=== PATIENT | female | born 1955 | race Caucasian/White ===

== ENCOUNTER 2023-02-15 09:25 | Outpatient (CLI) | payer BC, SELFPAY ==
--- NOTE | 2023-02-15 09:36 | MM_ITS ---
WS: [id number] Bilateral screening 3D tomosynthesis digital mammogram, 02/15/2023 Clinical Data: SCREENING Comparison: 10/03/2019, 05/16/2018, 07/02/2017, 05/03/2016, 04/27/2015, 04/13/2014, 11/25/2012, 01/20/2011, , 09/28/2008 , 08/14/2007. Findings: The breast parenchymal pattern shows fibroglandular tissue. No spiculated masses or clustered calcifi cations are seen. There are no secondary signs of carcinoma. MM/[place] [id number] Impression: 1. Negative bilateral mammogram unchanged. 2. Recommend annual screening mammograms. BIRADS: 1-Negative FOLLOW UP: 1 Year Follow-up The CAD auto design checker was used.
== END 2023-02-15 09:26 | disposition home or self-care (01) ==
PROVIDERS: Family Provider Internal Medicine; PCP Electrodiagnostic Medicine; Visit Provider Electrodiagnostic Medicine
DX: Z12.31 Encounter for screening mammogram for malignant neoplasm of breast (principal)
CPT/HCPCS: 77063; 77067

== ENCOUNTER 2023-05-17 14:16 | Outpatient (CLI) | payer BC, SELFPAY ==
--- NOTE | 2023-05-17 14:26 | XR_ITS ---
WS: [id number] SCREENING DEXA SCAN [employer] CLINICAL INFORMATION: POSTMENOPAUSAL COMPARISON: None. FINDINGS: The L1-L4 bone mineral density measures 1.038 g/cm2. This corresponds to a T score score of -1.2 and Z score of -0.3. Left femoral neck bone mineral density measures 1.010 g/cm2. This corresponds to a T score of 0.0 and Z score of 0.8. Right femoral neck bone mineral density measures 1.001 g/cm2. This corresponds to a T score -0.1of an d Z score of 0.7. Mean femoral neck bone mineral density measures 1.006 g/cm2. This corresponds to a T score of 0.0 and Z score of 0.7. IMPRESSION: Osteopenia lumbar spine. Normal bone mineralization femoral necks. Patient's FRAX calculated 10 year probability for major osteoporotic fracture is 14.4% and osteoporot ic hip fracture is 1.7%.
== END 2023-05-17 14:17 | disposition home or self-care (01) ==
PROVIDERS: PCP Electrodiagnostic Medicine; Visit Provider Electrodiagnostic Medicine
DX: Z13.820 Encounter for screening for osteoporosis (principal); Z78.0 Asymptomatic menopausal state; M85.88 Other specified disorders of bone density and structure, other site
CPT/HCPCS: 77080

== ENCOUNTER 2024-02-02 14:13 | Emergency (ER) | payer MEDICARE, SELFPAY ==
[2024-02-02 14:46] VITALS: BP 165/74; PULSE 73; RESP 17; TEMP 36.6; O2SAT 96; BMI 34.7
--- NOTE | 2024-02-02 15:13 | XRR_ITS ---
PROCEDURE INFORMATION: Exam: XR Right Shoulder Exam date and time: 02/02/2024 3:52 PM Age: 68 years old Clinical indication: Injury or trauma; Fall; Blunt trauma (contusions or hematomas); Shoulder; Right; Additional info: Fall/pain TECHNIQUE: Imaging protocol: Radiologic exam of the right shoulder. Views: 2 or more views. COMPARISON: No relevant prior studies available. FINDINGS: Bones/joints: Acute comminuted displaced proximal humeral fracture involving surgical neck and greater tuberosity. A large displaced greater tuberosity fragment is noted. The humeral head appears reduced within the glenoid fossa. The acromioclavicular articulation is grossly intact with moderate osteoarthritis. Soft tissues: Soft tissue edema of the right shoulder. No radiopaque foreign body. XR/XR shoulder RT min 2V* [id number] IMPRESSION: 1. Acute comminuted displaced proximal humeral fracture on the right.
--- NOTE | 2024-02-02 15:26 | W.ED.EXTPRO ---
HPI - Extremity Problem General: Chief complaint: Extremity Injury, Upper Stated complaint: fall, right shoulder pain Time Seen by Provider: 02/02/24 15:26 History of Present Illness: 68-year-old female presents emergency department with complaints of right upper arm pain. She states she tripped over an object in her yard and fell on outstretched arm. She states she had immediate 10 out of 10 pain and had a cracking/popping sensation to her right upper shoulder when she fell. She denies neck pain or loss of consciousness. She states she does feel slightly nauseated and attributes that to her right upper arm pain. She denies numbness or tingling to the extremity. She denies back pain or loss of consciousness. She states any type of movement makes the pain worse and holding completely still makes the pain better. Review of Systems General: Reports: 10 or more systems reviewed and unremarkable except in HPI and below Musc: Reports: extremity pain and extremity swelling Physical Exam Narrative: EXAM NARRATIVE: Constitutional: the patient appears well nourished and of normal development. Vital signs as documented. No acute distress at present. Alert and oriented-to person, place, time and situation. Head, eyes, ears, nose, mouth, throat: Normocephalic, atraumatic. Pupils-equal, round, reactive to light. No scleral icterus. Normal-appearing external ears. Normal appearing nasal turbinates, no drainage. No obvious oral lesions, posterior oropharynx without erythema or exudates. Neck: Supple, trachea is midline, no lymphadenopathy, no jugular venous distension, thyromegaly, or carotid bruits. Carotid upstrokes are brisk bilaterally. Lungs: clear to auscultation to all lung del angel. Symmetrical rise and fall of chest, no obvious signs of increased work of breathing at present. Cardiac: Regular rate and rhythm, positive S1, S2. No murmurs, rubs or gallops that I can appreciate Abdomen: Soft, non-tender to palpation, normal active bowel sounds to all quadrants. No palpable masses, no organomegaly and abdominal bruits. Extremities: 2+ pulses in the upper extremities that are equal bilaterally, 2+ pulses in the lower extremities that are equal bilaterally. Non-edematous. Sensation in all extremities, right upper extremity tenderness to palpation with obvious swelling consistent with fracture. Skin: Warm, dry, intact. Course Vital Signs: Vital signs: Vital Signs Temperature 98 F 04/27/24 14:46 Pulse Rate 73 02/02/24 14:46 Respiratory Rate 17 02/02/24 14:46 Blood Pressure 165/74 02/02/24 14:46 Pulse Oximetry 96 02/02/24 14:46 Oxygen Delivery Me thod Room Air 02/02/24 14:46 MDM - Extremity (Nontraumatic) Medical Decision Making Physical exam completed and documented I did provide the patient's muscle relaxer, intramuscular pain medication and p.o. pain medication as well as a plain film x-rays which demonstrated fracture I also provided a sling for the patient's upper extremity as well as contact information for the on-call orthopedic physician. Procedure note: Right shoulder sling I reviewed the radiographic examination and determined the need for stabilization via right upper extremity sling. A soft shoulder sling was utilized. The sling was ordered and placed by the nursing staff, under the direct supervision of myself (ER Physician. The patient's neurovascular status was evaluated and was intact before and after the application of the sling/splint. Capillary refill was less than 3 seconds before and after the application. The patient was provided a sling and the most appropriate anatomical and functional position at that time. Anticipatory guidance, return precautions and red flag precautions were provided to the patient and support person. The patient/support person was advised to contact the patient's primary care provider or Orthopedic provider to make a follow-up appointment for additional evaluation and treatment within the next 3-5 days. Medical Records I reviewed the patient's medical records. Lab Data Radiology Impressions Shoulder X-Ray 02/02/24 15:13 IMPRESSION: 1. Acute comminuted displaced proximal humeral fracture on the right. All radiology interpretation(s) finalized by discharge Discharge Plan Discharge Patient Disposition: Home Clinical Impression: Closed right humeral fracture, Arm pain, right, Accidental fall Condition: Stable Prescriptions: New hydrocodone-acetaminophen 10-325 mg tablet 1 tab PO Q6H PRN (Reason: pain) Qty: 21 0RF naproxen 500 mg tablet 500 mg PO Q12H PRN (Reason: pain) Qty: 20 0RF cyclobenzaprine 10 mg tablet 10 mg PO Q8H Qty: 21 0RF Discharge Orders: Discharge ED (Routine); Ordered 02/02/24 Ordered By: Don Carranza Referrals: Arvin Chen DO [Physician] - Jaspreet Sanchez DO [Primary Care Provider] - Discharge Diet: Usual diet Discharge Activity: Resume usual activity Patient Instructions: Opioid Safety, Pain Management Activity Restrictions/Additional Instructions: Activity Restrictions/Additional Instructions: Thank you for choosing [facility] for your healthcare needs today. Please realize that you were seen in the Emergency Department and that we are providing you with an emergency medical screening exam and this may not be a complete and all inclusive of all the testing and or medical work-up that you may need to determine your ailment or severity of your illness. It is very important that you follow-up as instructed with your Primary care provider or Specialist for additional evaluation and to discuss your medical treatment plan. You may return to the Emergency Department should you have concerns or if your condition changes or worsens in any way. Coding Level of Care Code ED [employer] Machine Operator for Sarika Gomez
[2024-02-02] MEDS: HYDROcodone-acetaminophen 5-325 mg Tablet 1 TAB PO (16:22)
[2024-02-02] MEDS: orphenadrine 30 mg/mL Inj 2 mL 60 MG IM (16:28)
[2024-02-02] MEDS: ketorolac 60 mg/2 mL INJ IM (16:29)
== END 2024-02-02 17:39 | disposition home or self-care (01) ==
PROVIDERS: Emergency Provider Internal Medicine; PCP Electrodiagnostic Medicine
DX: S42.291A Other displaced fracture of upper end of right humerus, initial encounter for closed fracture (principal); W18.09XA Striking against other object with subsequent fall, initial encounter; Y92.007 Garden or yard of unspecified non-institutional (private) residence as the place of occurrence of the external cause
CPT/HCPCS: 73030; 96372; 99284; J1885; J2360

== ENCOUNTER → 2024-02-07 15:05 | Outpatient (BNVA) | payer MEDICARE, SELFPAY | PROVIDERS: PCP Electrodiagnostic Medicine; Visit Provider Orthopaedic Surgery | DX: M79.601 Pain in right arm; S42.231A 3-part fracture of surgical neck of right humerus, initial encounter for closed fracture; W19.XXXA Unspecified fall, initial encounter | CPT/HCPCS: 73030; 73060; 99204 ==

== ENCOUNTER 2024-02-12 15:46 | Outpatient (CLI) | payer MEDICARE, SELFPAY ==
--- NOTE | 2024-02-12 16:15 | CT_ITS ---
WS: [id number] CT RIGHT SHOULDER, NONCONTRAST, 3D. HISTORY: M79.601 - Pain in right arm Technique: All CT scans at [facility] use at least one of these dose optimization techniques: automated exposure control; mA and/or kV adjustment per patient size (includes targeted exams where dose is matched to clinical indication); or iterative reconstruction. DLP: 434.43 mGy.cm COMPARISON: Radiograph 02/07/2024 Comminuted RIGHT proximal humeral fracture with medial displacement and impaction. Fracture is impact ed along the surgical neck fracture site and medially displaced by 12 mm. Avulsion of the greater tub erosity sits lateral to the humeral head. Very slight displacement of the humeral head from the gleno id is probably due to joint effusion related to the fracture. The glenoid itself appears intact. Ther e is no callus formation or healing. Mild AC joint arthritis. Clavicle and visualized ribs appear fracture free. CT/CT shoulder RT wo con* [id number] IMPRESSION: 1. Comminuted, impacted and medially displaced proximal RIGHT humeral fracture and. 2. Avulsion of the greater tuberosity is displaced laterally and superiorly. 3. No additional fractures.
== END 2024-02-12 15:47 | disposition home or self-care (01) ==
LOC: RAD 15:46
PROVIDERS: PCP Electrodiagnostic Medicine; Visit Provider Orthopaedic Surgery
DX: M79.601 Pain in right arm (principal); S42.201A Unspecified fracture of upper end of right humerus, initial encounter for closed fracture; X58.XXXA Exposure to other specified factors, initial encounter
CPT/HCPCS: 73200

== ENCOUNTER → 2024-02-19 15:27 | Outpatient (BNVA) | payer MEDICARE, SELFPAY | PROVIDERS: PCP Electrodiagnostic Medicine; Visit Provider Orthopaedic Surgery | DX: Z09 Encounter for follow-up examination after completed treatment for conditions other than malignant neoplasm; S42.291D Other displaced fracture of upper end of right humerus, subsequent encounter for fracture with routine healing; X58.XXXD Exposure to other specified factors, subsequent encounter; S42.90XD Fracture of unspecified shoulder girdle, part unspecified, subsequent encounter for fracture with routine healing | CPT/HCPCS: 80053; 81001; 85025; 87077; 87086; 87186; 99214 ==

== ENCOUNTER 2024-02-25 11:16 | Day surgery (SDC) | payer MEDICARE, SELFPAY ==
[2024-02-25] VITALS (14 sets, daily range): BP systolic 105–150; BP diastolic 46–66; PULSE 58–78; RESP 16–20; TEMP 36.2–36.4; O2SAT 90–98
[2024-02-25] MEDS: sodium chloride 0.9% 1,000 ML 30 ML IV (11:47)
--- NOTE | 2024-02-25 13:25 | W.PM.OPSUD ---
Surgery/Procedure H&P Update DATE OF PROCEDURE: February 25, 2024 DATE H&P PERFORMED: 02/19/24 H&P UPDATE INFORMATION: I have reviewed H&P completed within last 30 days, I have examined patient prior to procedure and No changes to prior documentation PREOP DIAGNOSIS: Right proximal humerus fracture PLANNED PROCEDURE: Operation Date: 02/25/24 12:55 Proposed Procedures p ORIF Proximal Humerus(Right) - Arvin Chen DO
[2024-02-25] MEDS: ceFAZolin 2,000 MG in sodium chloride 0.9% (plus) 50 ML 100 MG IV (13:57)
[2024-02-25] MEDS: lidocaine-epi 2% PF 1:200,000 20 mL SDV INJECTION (14:52)
--- NOTE | 2024-02-25 14:56 | ANES.PREANE2 ---
Pre-Anesthetic Assessment Height/Weight: Height 1.55 m Weight 83.461 kg Temp Pulse Resp BP Pulse Ox O2 Del Method 97.2 F L 74 18 150/64 98 Room Air 02/25/24 11:48 02/25/24 11:48 02/25/24 11:48 02/25/24 11:48 02/25/24 11:48 02/25/24 11:48 Preop Diagnosis: Right proximal humerus fracture Operation Date: 02/25/24 12:55 Proposed Procedures p ORIF Proximal Humerus(Right) - Arvin Chen DO Familial anesthetic complications: none Was Beta Glenn taken within 24 hours: N/A Was Clonidine taken within 24 hours: N/A Last intake: Intake Last Liquid Date 02/24/24 Last Liquid Time 23:55 Last Solid Date 02/24/24 Last Solid Time 21:00 Social No alcohol and No tobacco Exam alert, oriented x 3, clear to auscultation bilaterally and regular rate & rhythm Airway Submandibular: within normal limits Cervical ROM: within normal limits Mallampati: Class II Dentition: full GI Gastroesophageal Reflux Disease Metabolic Hyperlipidemia Anesthetic Plan ASA status: 2 Anesthesia: General and Regional (specify below) (right interscalene blk) Medications/Allergies Home Medications Medication Instructions Recorded Confirmed Last Taken Type omeprazole 40 mg capsule,delayed 40 mg PO DAILY 02/19/24 02/22/24 02/25/24 History release simvastatin 40 mg tablet 40 mg PO DAILY 02/19/24 02/22/24 02/23/24 History Allergies Allergy/AdvReac Type Severity Reaction Status Date / Time No Known Allergies Allergy Verified 02/22/24 12:24 Current Medications Generic Name Dose Route Start Last Admin Trade Name Freq PRN Reason Stop Dose Admin Sodium Chloride 1,000 mls @ 30 mls/hr 02/25/24 11:30 02/25/24 11:47 Sodium Chloride 0.9% IV 02/26/24 11:29 30 mls/hr .Q24H CK Administration Data Anesthesia Cardiac Studies: No Data to Display
--- NOTE | 2024-02-25 16:16 | PM.OP ---
Operative Report Date of procedure: February 25, 2024 Pre-op diagnosis: Right proximal humerus fracture Post-op diagnosis: same Procedure done: Open reduction internal fixation of right proximal humerus fracture Surgeon: Arvin Chen DO Estimated blood loss (mL): 150 Procedure: Open reduction internal fixation right proximal humerus fracture Patient brought the op suite after undergoing his he was placed in the beachchair position. All his impingement well-padded. Patient prepped draped normal sterile fashion. Skin incision made using deltopectoral interval. The cephalic vein was taken medially. Deltopectoral approach was used the fracture was exposed. The large greater tuberosity piece was identified and reduced down. The proximal humerus articular surface area started to heal at this point there is callus formation. I elected to leave this in the position is more of an impacted fracture at this point with the greater tuberosity brought down. Reduced that put FiberWire's into the anterior posterior and superior cuff. Brought the history of the Arthrex plate. And then the plate was placed in the appropriate position K wires were placed and then the 2 cortical screws were placed distally in the plate. And then locking screws were placed proximally. Locked in position. And then 1 more cortical screw was placed distally. AP lateral fluoroscopy ensured the screws were in good position. The FiberWire was passed through the plate and tied down anterior posteriorly and superiorly. Fluoroscopy was used to ensure the screws were in good position and there were no screws outside the joint and fracture was in good position. Wounds were irrigated and closed with Vicryl and jairo. Sterile dressings were applied patient was transferred to the PACU in stable condition.
--- NOTE | 2024-02-25 16:28 | XR_ITS ---
WS: [id number] C-ARM RADIOGRAPHS RIGHT SHOULDER; 5 IMAGES HISTORY: OR PICS COMPARISON: 02/07/2024 Intraoperative ORIF with reduction of the recently described RIGHT humeral head fracture with impacti on and displacement. Plate and screw fixation with the fracture being in improved alignment. XR/XR shoulder RT min 2V* [id number] IMPRESSION: Status post intraoperative imaging during fixation and reduction of the RIGHT h umeral head fracture
[2024-02-25] MEDS: scopolamine 1.5 Patch 1 PATCH TRANSDERMA (16:50)
--- NOTE | 2024-02-25 16:59 | ANE.PACU2 ---
Inpatient post-anesthesia follow up: Airway intact: Yes Vital signs: Temperature 97.3 F Pulse Rate 59 Respiratory Rate 16 Blood Pressure 108/49 Pulse Oximetry 93 Oxygen Delivery Me thod Nasal Cannula Oxygen Flow Rate 2 Fraction of Inspir ed Oxygen Hydration adequate: Yes Nausea and vomiting: No Pain level: 1 Mental status: Baseline
[2024-02-25] MEDS: ondansetron 2 mg/ML SDV 2 mL 4 MG IVP (17:15)
[2024-02-25] MEDS: diphenhydrAMINE 50 mg/mL SDV 1mL 12.5 MG IVP (18:09)
[2024-02-25] MEDS: hetastarch 30 GM/500 ML PREMIX IV (18:19)
== END 2024-02-25 19:39 | disposition home or self-care (01) ==
PROVIDERS: PCP Electrodiagnostic Medicine; Visit Provider Orthopaedic Surgery
PROC: (CPT 23615; principal; 2024-02-25 12:45)
DX: S42.201A Unspecified fracture of upper end of right humerus, initial encounter for closed fracture (principal)
CPT/HCPCS: 23615; 73030; 76000; C1713; J0690; J1100; J1170; J1200; J2405; J2704; J2710; J3010; J3490; J7030

== ENCOUNTER → 2024-03-11 14:35 | Outpatient (BNVA) | payer MEDICARE, SELFPAY | PROVIDERS: PCP Electrodiagnostic Medicine; Visit Provider Orthopaedic Surgery | DX: S42.291D Other displaced fracture of upper end of right humerus, subsequent encounter for fracture with routine healing (principal); X58.XXXD Exposure to other specified factors, subsequent encounter | CPT/HCPCS: 73030; 99024 ==

== ENCOUNTER → 2024-04-08 15:07 | Outpatient (BNVA) | payer MEDICARE, SELFPAY | PROVIDERS: PCP Electrodiagnostic Medicine; Visit Provider Orthopaedic Surgery | DX: S42.291D Other displaced fracture of upper end of right humerus, subsequent encounter for fracture with routine healing (principal); X58.XXXD Exposure to other specified factors, subsequent encounter | CPT/HCPCS: 73030; 99024 ==

== ENCOUNTER → 2024-05-20 14:14 | Outpatient (BNVA) | payer MEDICARE, SELFPAY | PROVIDERS: PCP Electrodiagnostic Medicine; Visit Provider Orthopaedic Surgery | DX: S42.291D Other displaced fracture of upper end of right humerus, subsequent encounter for fracture with routine healing (principal); X58.XXXD Exposure to other specified factors, subsequent encounter | CPT/HCPCS: 99024 ==

== ENCOUNTER 2024-05-28 06:00 | Outpatient (RCR) | payer MEDICARE, SELFPAY | END 2024-06-07 18:00 | disposition home or self-care (01) | LOC: APT 06:00 | PROVIDERS: Visit Provider Orthopaedic Surgery | DX: Z98.890 Other specified postprocedural states (principal) | CPT/HCPCS: 97161 ==

== ENCOUNTER 2024-06-08 06:00 | Outpatient (RCR) | payer MEDICARE, SELFPAY | END 2024-07-07 23:59 | disposition home or self-care (01) | LOC: APT 06:00 | PROVIDERS: Visit Provider Orthopaedic Surgery | DX: Z47.89 Encounter for other orthopedic aftercare (principal) | CPT/HCPCS: 97110; 97112; 97140; 97530 ==

== ENCOUNTER 2024-07-08 06:00 | Outpatient (RCR) | payer MEDICARE, SELFPAY | END 2024-08-07 23:59 | disposition home or self-care (01) | LOC: APT 06:00 | PROVIDERS: Visit Provider Orthopaedic Surgery | DX: Z47.89 Encounter for other orthopedic aftercare (principal) | CPT/HCPCS: 97110; 97112; 97530 ==

== ENCOUNTER 2024-08-07 08:17 | Outpatient (CLI) | payer MEDICARE, SELFPAY ==
--- NOTE | 2024-08-07 08:20 | MM_ITS ---
WS: [id number] SCREENING DIGITAL BREAST TOMOSYNTHESIS MAMMOGRAM WITH CAD HISTORY: SCREENING COMPARISON: 02/15/2023, 10/03/2019 Bilateral CC and MLO with tomosynthesis and synthetic mammography submitted. Computer aided detection analyzed. Breast composition: There are scattered areas of fibroglandular density. New irregular microlobulated mass increased density 3:00 mid depth LEFT breast. Mass measures 4 x 7 x 5 mm. The remaining breasts are negative. Vascular calcifications. MM/MM scr BI tomosynthesis [id number] IMPRESSION: BI-RADS: 0 - Incomplete: Need additional imaging evaluation. FOLLOW UP: Need Additional Imaging LEFT breast: Spot compression views (CC and MLO). True ML. Ultrasound to follow if abnormality persists.
== END 2024-08-07 08:18 | disposition home or self-care (01) ==
LOC: RAD 08:18
PROVIDERS: PCP Electrodiagnostic Medicine; Visit Provider Electrodiagnostic Medicine
DX: Z12.31 Encounter for screening mammogram for malignant neoplasm of breast (principal); R92.323 Mammographic fibroglandular density, bilateral breasts; N63.21 Unspecified lump in the left breast, upper outer quadrant; R92.1 Mammographic calcification found on diagnostic imaging of breast
CPT/HCPCS: 77063; 77067

== ENCOUNTER 2024-08-08 06:00 | Outpatient (RCR) | payer MEDICARE, SELFPAY | END 2024-09-06 23:59 | disposition home or self-care (01) | LOC: APT 06:00 | PROVIDERS: PCP Electrodiagnostic Medicine; Visit Provider Orthopaedic Surgery | DX: Z98.890 Other specified postprocedural states (principal) | CPT/HCPCS: 97110; 97112; 97530 ==

== ENCOUNTER → 2024-08-28 14:41 | Outpatient (BNVA) | payer MEDICARE, SELFPAY | PROVIDERS: PCP Electrodiagnostic Medicine; Visit Provider Orthopaedic Surgery | DX: S42.291D Other displaced fracture of upper end of right humerus, subsequent encounter for fracture with routine healing (principal); X58.XXXD Exposure to other specified factors, subsequent encounter | CPT/HCPCS: 73060; 99213 ==

== ENCOUNTER 2024-09-07 06:00 | Outpatient (RCR) | payer MEDICARE, SELFPAY | END 2024-10-07 23:59 | disposition home or self-care (01) | LOC: APT 06:00 | PROVIDERS: PCP Electrodiagnostic Medicine; Visit Provider Orthopaedic Surgery | DX: Z47.89 Encounter for other orthopedic aftercare (principal) | CPT/HCPCS: 97110; 97112; 97140; 97530 ==

== ENCOUNTER 2024-09-15 09:31 | Outpatient (CLI) | payer MEDICARE, SELFPAY ==
--- NOTE | 2024-09-15 09:38 | MM_ITS ---
WS: [id number] ADDITIONAL VIEWS LEFT MAMMOGRAM with tomosynthesis. LEFT BREAST ULTRASOUND HISTORY: ABNORMAL MAMMOGRAM COMPARISON: 08/07/2024, 02/15/2023, 10/03/2019 LEFT MAMMOGRAM: Spot compression views and true ML with tomosynthesis and sympathetic mammography. High density slightly lobulated mass measuring 3 x 3 x 5 mm LEFT breast near 3:00 at mid to posterior depth. No calcifications or distortion. LEFT BREAST ULTRASOUND 2-D and color Doppler imaging submitted. At 2:00, 3 cm from the nipple there is a slightly hypoechoic mass measuring 0.3 x 0.4 x 0.3 mm. This does correspond in size and location to the mammographic abnormality. There is an additional similar hypoechoic focus at 2:00 at the nipple measuring 0.4 x 0.2 x 0.2 mm. MM/MM diag LT tomosynthesis [id number] IMPRESSION: BI-RADS: 3- Probably Benign FOLLOW UP: 6 Month Follow-up Recommend 6-month LEFT breast ultrasound evaluation.
== END 2024-09-15 09:32 | disposition home or self-care (01) ==
PROVIDERS: PCP Electrodiagnostic Medicine; Visit Provider Electrodiagnostic Medicine
DX: N63.42 Unspecified lump in left breast, subareolar (principal)
CPT/HCPCS: 76642; 77061; G0279

== ENCOUNTER → 2024-12-02 15:11 | Outpatient (BNVA) | payer MEDICARE, SELFPAY | PROVIDERS: PCP Electrodiagnostic Medicine; Visit Provider Orthopaedic Surgery | DX: S42.291D Other displaced fracture of upper end of right humerus, subsequent encounter for fracture with routine healing (principal); X58.XXXD Exposure to other specified factors, subsequent encounter | CPT/HCPCS: 73030; 99213 ==

== ENCOUNTER 2025-04-07 11:32 | Outpatient (CLI) | payer MEDICARE, SELFPAY ==
--- NOTE | 2025-04-07 11:40 | US_ITS ---
WS: [id number] ULTRASOUND LEFT BREAST, limited HISTORY: ABNORMAL MAMMOGRAM/6 MONTH FOLLOW UP COMPARISON: Mammogram 09/15/2024, 08/07/2024 and prior ultrasound 09/15/2024 TECHNIQUE: 2-D and Doppler. Reidentified is a slightly hypoechoic mass at 2:00 measuring 0.2 x 0.2 x 0.4 cm. This corresponds to the mammographic and prior ultrasound abnormality. No increase in size. No increased vascularity. US/US breast LT limited* [id number] IMPRESSION: BI-RADS: 3- Probably Benign FOLLOW-UP: 6 Month Follow-up Patient to return in 6 months for annual mammography. Recommend continued ultra sound follow-up LEFT breast at that time.
== END 2025-04-07 11:33 | disposition home or self-care (01) ==
LOC: RAD 11:33
PROVIDERS: PCP Electrodiagnostic Medicine; Visit Provider Electrodiagnostic Medicine
DX: N63.21 Unspecified lump in the left breast, upper outer quadrant (principal)
CPT/HCPCS: 76642

== ENCOUNTER 2025-05-29 13:47 | Outpatient (CLI) | payer MEDICARE, SELFPAY ==
--- NOTE | 2025-05-29 13:56 | XR_ITS ---
WS: [id number] DEXA (DUAL ENERGY X-RAY ABSORPTIOMETRY) Bone mineral density was performed using a Boxbe machine. HISTORY: OSTEOPENIA COMPARISON: 05/17/2023 Lumbar spine BMD (L1-L4): 1.027 g/cm2 T score: -1.3 Z score: -0.4 Total hip BMD: Left: 1.030 g/cm2. T score: 0.2 Z score: 1.0 Right: 0.991 g/cm2. T score: -0.1 Z score: 0.7 10 year probability of a major osteoporotic fracture is 16.0%. Compared to the prior study from 05/17/2023. Lumbar spine bone mineral density has decreased by 1.1%. Bilateral hips bone mineral density has increased by 0.5%. XR/XR DEXA axial skeleton* [id number] IMPRESSION: OSTEOPENIA based upon the WHO classification for females. No significant change in bone mineral density within the lumbar spine or hips s olga the prior study.
== END 2025-05-29 13:48 | disposition home or self-care (01) ==
LOC: RAD 13:48
PROVIDERS: PCP Electrodiagnostic Medicine; Visit Provider Electrodiagnostic Medicine
DX: Z13.820 Encounter for screening for osteoporosis (principal); M81.0 Age-related osteoporosis without current pathological fracture; M85.89 Other specified disorders of bone density and structure, multiple sites
CPT/HCPCS: 77080